=== PATIENT | male | born 1970 | race Hispanic/Latino ===

== ENCOUNTER 2021-02-21 15:00 | Inpatient (IN) | payer MEDICARE ==
[~2021-02-21] VITALS: Ht 167.6 cm; Wt 54.4 kg
[2021-02-21 14:08] LABS: BASOPHILS % (AUTO) 0.4 % (0.0-5.0); EOSINOPHILS % (AUTO) 3.3 % (0.0-8.0); HEMATOCRIT 39.5 % (42-54); LYMPHOCYTES % (AUTO) 18.6 % (21.0-51.0); MEAN CORPUSCULAR HGB CONC 31.4 g/dL (32.0-36.0); MEAN CORPUSCULAR VOLUME 92.5 fL (79-99); MONOCYTES % (AUTO) 8.6 % (3.0-13.0); NEUTROPHILS % (AUTO) 68.8 % (40.0-77.0); PLATELET COUNT (AUTO) 339 K/uL (130-400); RED BLOOD CELL COUNT(AUTO) 4.27 MIL/uL (4.50-6.20); RED CELL DISTRIBUTION WIDTH 13.5 % (11.0-15.5); WHITE BLOOD COUNT (AUTO) 9.8 K/uL (4.8-10.8)
[2021-02-21 14:16] LABS: CREATININE 0.6 mg/dL (0.5-1.5); POTASSIUM 3.9 mmol/L (3.5-5.1)
[2021-02-22 08:33] VITALS: BP 98/63
[2021-02-22] MEDS ORDERED: LACTATED RINGERS 1000ML 1,000 ML IV SCH (09:00)
[2021-02-22] MEDS ORDERED: ESLI600T PO (17:27)
[2021-02-22] MEDS ORDERED: LEVE10006 PO (17:27)
[2021-02-22] MEDS ORDERED: LACO200T2 PO (17:27)
[2021-02-22] MEDS ORDERED: [UNRECOGNIZED DRUG - OTHER] PO (17:27)
[2021-02-23] VITALS (19 sets, daily range): BP systolic 106–128; BP diastolic 62–81
[2021-02-23] MEDS: CEFAZOLIN SODIUM 1 GM VIAL IVP SCH ×2 (13:10→16:13)
[2021-02-23] MEDS ORDERED: LIDOCAINE PF 100MG/5ML (2%) SYRINGE 5ML ONE (15:52)
[2021-02-23] MEDS ORDERED: SUCCINYLCHOLINE CHLORIDE 20 MG/ML 10 ML VIAL ONE (15:52)
[2021-02-23] MEDS ORDERED: PROPOFOL 10 MG/ML 20ML VIAL IV ONE (15:52)
[2021-02-23] MEDS ORDERED: FENTANYL CITRATE PF 50 MCG/1 ML 2ML VIAL ONE (15:53)
[2021-02-23] MEDS ORDERED: MIDAZOLAM HCL 1 MG/ML 2ML VIAL ONE (16:00)
[2021-02-23] MEDS ORDERED: ONDANSETRON 4MG INJ ONE (16:56)
[2021-02-23] MEDS: LACTATED RINGERS 1000ML 1,000 ML IV SCH (20:00)
[2021-02-23] MEDS ORDERED: NITROGLYCERIN 0.4 MG SL TAB SL PRN (20:30)
[2021-02-23] MEDS ORDERED: ONDANSETRON 4MG INJ IV PRN (20:30)
[2021-02-23] MEDS ORDERED: ACETAMINOPHEN 325 MG SUPPOSITORY RC PRN (21:00)
[2021-02-23] MEDS ORDERED: ACETAMINOPHEN 650 MG SUPPOSITORY RC PRN ×2 (21:00)
[2021-02-23] MEDS ORDERED: COMPOUND NARC IV MISC 1 EACH IVSOLN MISC PRN (21:00)
[2021-02-23] MEDS ORDERED: DIAZEPAM 5 MG/ML 2 ML SYG IVP PRN ×2 (21:00)
[2021-02-23] MEDS ORDERED: [UNRECOGNIZED DRUG - OTHER] IV SCH (21:30)
[2021-02-23] MEDS ORDERED: LACOSAMIDE IV SCH (21:30)
[2021-02-23] MEDS: FAMOTIDINE 20MG VIAL IV SCH (22:18)
[2021-02-24] MEDS: [UNRECOGNIZED DRUG - OTHER] IV SCH ×2 (00:20→09:43)
[2021-02-24] MEDS: LEVETIRACETAM IV SCH ×2 (00:20→09:43)
[2021-02-24] MEDS ORDERED: MORPHINE 2 MG SYG ONE (00:26)
[2021-02-24 03:28] VITALS: BP 114/53
[2021-02-24 05:56] LABS: BASOPHILS % (AUTO) 0.3 % (0.0-5.0); EOSINOPHILS % (AUTO) 2.2 % (0.0-8.0); HEMATOCRIT 35.9 % (42-54); LYMPHOCYTES % (AUTO) 15.6 % (21.0-51.0); MEAN CORPUSCULAR HEMOGLOBIN 28.5 pg (27.0-33.0); MEAN CORPUSCULAR HGB CONC 31.5 g/dL (32.0-36.0); MEAN CORPUSCULAR VOLUME 90.4 fL (79-99); MONOCYTES % (AUTO) 9.6 % (3.0-13.0); PLATELET COUNT (AUTO) 328 K/uL (130-400); RED BLOOD CELL COUNT(AUTO) 3.97 MIL/uL (4.50-6.20); RED CELL DISTRIBUTION WIDTH 13.5 % (11.0-15.5); WHITE BLOOD COUNT (AUTO) 9.2 K/uL (4.8-10.8)
[2021-02-24 06:27] LABS: ALBUMIN 2.4 g/dL (3.5-5.0); BILIRUBIN,TOTAL 0.5 mg/dL (0.2-1.0); CREATININE 0.6 mg/dL (0.5-1.5); MAGNESIUM 1.9 mg/dL (1.80-2.40); POTASSIUM 3.8 mmol/L (3.5-5.1); TOTAL PROTEIN, SERUM 7.3 g/dL (6.0-8.3)
[2021-02-24 08:00] VITALS: BP 110/65
[2021-02-24] MEDS ORDERED: LACOSAMIDE 200 MG/20 ML VIAL IV SCH ×2 (09:46→10:03)
[2021-02-24] MEDS ORDERED: LACOSAMIDE IV SCH ×5 (10:00→21:00)
[2021-02-24] MEDS ORDERED: COMPOUND NARC IV MISC 1 EACH IVSOLN MISC PRN (10:00)
[2021-02-24] MEDS ORDERED: [UNRECOGNIZED DRUG - OTHER] IV SCH ×5 (10:00→21:00)
[2021-02-24] MEDS ORDERED: 0.9%NACL 50ML 50 ML IV SCH (10:30)
[2021-02-24] MEDS: FAMOTIDINE 20MG VIAL IV SCH ×2 (10:35→21:25)
[2021-02-24 11:51] VITALS: BP 107/68
[2021-02-24] MEDS ORDERED: COMPOUND IV MISC 1 EACH IVSOLN MISC PRN (13:00)
[2021-02-24 16:00] VITALS: BP 114/73
[2021-02-24 19:50] VITALS: BP 107/69
[2021-02-24] MEDS: LEVETIRACETAM 100 MG/ML 5 ML UDCUP PEG SCH (21:00)
[2021-02-24] MEDS: ESLICARBAZEPINE 600 MG PEG SCH (21:00)
[2021-02-24] MEDS: LACOSAMIDE 200 MG PEG SCH (21:01)
[2021-02-24] MEDS: LACTATED RINGERS 1000ML 1,000 ML IV SCH ×2 (21:25→22:43)
[2021-02-25] VITALS (7 sets, daily range): BP systolic 95–111; BP diastolic 60–71
[2021-02-25 05:49] LABS: BASOPHILS % (AUTO) 0.3 % (0.0-5.0); EOSINOPHILS % (AUTO) 2.4 % (0.0-8.0); HEMATOCRIT 34.6 % (42-54); LYMPHOCYTES % (AUTO) 12.1 % (21.0-51.0); MEAN CORPUSCULAR HEMOGLOBIN 28.7 pg (27.0-33.0); MEAN CORPUSCULAR HGB CONC 32.1 g/dL (32.0-36.0); MEAN CORPUSCULAR VOLUME 89.4 fL (79-99); MONOCYTES % (AUTO) 8.1 % (3.0-13.0); NEUTROPHILS % (AUTO) 76.7 % (40.0-77.0); PLATELET COUNT (AUTO) 368 K/uL (130-400); RED BLOOD CELL COUNT(AUTO) 3.87 MIL/uL (4.50-6.20); RED CELL DISTRIBUTION WIDTH 13.3 % (11.0-15.5); WHITE BLOOD COUNT (AUTO) 10.2 K/uL (4.8-10.8)
[2021-02-25 06:05] LABS: ALBUMIN 2.4 g/dL (3.5-5.0); BILIRUBIN,TOTAL 0.5 mg/dL (0.2-1.0); CREATININE 0.5 mg/dL (0.5-1.5); POTASSIUM 3.7 mmol/L (3.5-5.1); TOTAL PROTEIN, SERUM 7.4 g/dL (6.0-8.3)
[2021-02-25] MEDS: LACOSAMIDE 200 MG PEG SCH ×2 (09:00→20:07)
[2021-02-25] MEDS: FAMOTIDINE 20MG VIAL IV SCH ×2 (09:04→20:06)
[2021-02-25] MEDS: LEVETIRACETAM 100 MG/ML 5 ML UDCUP PEG SCH ×2 (09:05→20:06)
[2021-02-25] MEDS: LACTATED RINGERS 1000ML 1,000 ML IV SCH (13:10)
[2021-02-25] MEDS: ESLICARBAZEPINE 600 MG PEG SCH (20:06)
[2021-02-25] MEDS: MORPHINE 2 MG SYG IVP PRN (20:30)
[2021-02-26] MEDS: LACTATED RINGERS 1000ML 1,000 ML IV SCH (01:20)
[2021-02-26 04:17] VITALS: BP 110/66
[2021-02-26 05:19] LABS: BASOPHILS % (AUTO) 0.3 % (0.0-5.0); EOSINOPHILS % (AUTO) 2.4 % (0.0-8.0); HEMATOCRIT 35.1 % (42-54); LYMPHOCYTES % (AUTO) 15.3 % (21.0-51.0); MEAN CORPUSCULAR HEMOGLOBIN 29.1 pg (27.0-33.0); MEAN CORPUSCULAR HGB CONC 31.9 g/dL (32.0-36.0); MEAN CORPUSCULAR VOLUME 91.2 fL (79-99); NEUTROPHILS % (AUTO) 71.5 % (40.0-77.0); PLATELET COUNT (AUTO) 357 K/uL (130-400); RED BLOOD CELL COUNT(AUTO) 3.85 MIL/uL (4.50-6.20); RED CELL DISTRIBUTION WIDTH 13.4 % (11.0-15.5); WHITE BLOOD COUNT (AUTO) 11.1 K/uL (4.8-10.8)
[2021-02-26 05:41] LABS: ALBUMIN 2.5 g/dL (3.5-5.0); BILIRUBIN,TOTAL 0.3 mg/dL (0.2-1.0); CREATININE 0.5 mg/dL (0.5-1.5); POTASSIUM 3.7 mmol/L (3.5-5.1); TOTAL PROTEIN, SERUM 7.8 g/dL (6.0-8.3)
[2021-02-26 07:30] VITALS: BP 108/72
[2021-02-26] MEDS: LACOSAMIDE 200 MG PEG SCH (09:00)
[2021-02-26] MEDS: FAMOTIDINE 20MG VIAL IV SCH ×2 (09:21→21:15)
[2021-02-26] MEDS: LEVETIRACETAM 100 MG/ML 5 ML UDCUP PEG SCH ×2 (09:21→21:15)
[2021-02-26 11:00] VITALS: BP 102/63
[2021-02-26 16:00] VITALS: BP 112/69
[2021-02-26 20:12] VITALS: BP 115/71
[2021-02-26] MEDS: ESLICARBAZEPINE 600 MG PEG SCH (21:00)
[2021-02-26] MEDS: MORPHINE 2 MG SYG IVP PRN (21:15)
[2021-02-26 23:47] VITALS: BP 102/64
[2021-02-27 04:06] VITALS: BP 100/61
[2021-02-27 05:25] LABS: BASOPHILS % (AUTO) 0.3 % (0.0-5.0); EOSINOPHILS % (AUTO) 2.1 % (0.0-8.0); HEMATOCRIT 33.9 % (42-54); LYMPHOCYTES % (AUTO) 8.3 % (21.0-51.0); MEAN CORPUSCULAR HEMOGLOBIN 29.1 pg (27.0-33.0); MEAN CORPUSCULAR VOLUME 88.1 fL (79-99); NEUTROPHILS % (AUTO) 80.9 % (40.0-77.0); PLATELET COUNT (AUTO) 411 K/uL (130-400); RED BLOOD CELL COUNT(AUTO) 3.85 MIL/uL (4.50-6.20); RED CELL DISTRIBUTION WIDTH 13.2 % (11.0-15.5); WHITE BLOOD COUNT (AUTO) 11.2 K/uL (4.8-10.8)
[2021-02-27 05:55] LABS: ALBUMIN 2.5 g/dL (3.5-5.0); BILIRUBIN,TOTAL 0.3 mg/dL (0.2-1.0); CREATININE 0.6 mg/dL (0.5-1.5); MAGNESIUM 2.1 mg/dL (1.80-2.40); POTASSIUM 3.7 mmol/L (3.5-5.1); TOTAL PROTEIN, SERUM 7.9 g/dL (6.0-8.3)
[2021-02-27 07:30] VITALS: BP 102/62
[2021-02-27] MEDS ORDERED: ENOXAPARIN SODIUM 30 MG/0.3 ML SQ SCH (09:00)
[2021-02-27] MEDS ORDERED: LACOSAMIDE IV SCH (09:30)
[2021-02-27] MEDS ORDERED: [UNRECOGNIZED DRUG - OTHER] IV SCH (09:30)
[2021-02-27] MEDS ORDERED: PHARMACY COMMUNICATION MISC SCH ×4 (09:30→13:30)
[2021-02-27] MEDS: LEVETIRACETAM 100 MG/ML 5 ML UDCUP PEG SCH ×2 (09:36→21:43)
[2021-02-27] MEDS: FAMOTIDINE 20MG VIAL IV SCH ×2 (09:37→21:44)
[2021-02-27] MEDS ORDERED: LACTATED RINGERS 1000ML 1,000 ML IV ONE (09:46)
[2021-02-27] MEDS ORDERED: LORAZEPAM 2 MG/ML 1 ML VIAL ONE ×2 (10:13→20:18)
[2021-02-27 11:00] VITALS: BP 104/61
[2021-02-27] MEDS ORDERED: COMPOUND PO NARCOTIC 1 EACH PO SCH (11:00)
[2021-02-27] MEDS: LACTATED RINGERS 1000ML 1,000 ML IV SCH (11:00)
[2021-02-27] MEDS ORDERED: DIVALPROEX SODIUM 250 MG TABLET.DR PO ONE ×2 (12:44→14:30)
[2021-02-27] MEDS ORDERED: [UNRECOGNIZED DRUG - OTHER] IV SCH ×2 (13:30→21:00)
[2021-02-27] MEDS ORDERED: VALPROIC ACID IV SCH ×2 (13:30→21:00)
[2021-02-27] MEDS ORDERED: VALPROATE SOD 250 MG/5 ML (PO) PEG SCH (15:30)
[2021-02-27 16:00] VITALS: BP 98/61
[2021-02-27 20:12] VITALS: BP 106/65
[2021-02-27] MEDS ORDERED: DIVALPROEX SODIUM 250 MG TABLET.DR PO SCH (21:00)
[2021-02-27] MEDS ORDERED: LORAZEPAM 2 MG/ML 1 ML VIAL IVP ONE (21:00)
[2021-02-27] MEDS ORDERED: VALPROATE SOD 250 MG/5 ML (PO) PO SCH (21:00)
[2021-02-27] MEDS: ESLICARBAZEPINE 600 MG PEG SCH (21:00)
[2021-02-27] MEDS: [UNRECOGNIZED DRUG - OTHER] IV SCH (21:44)
[2021-02-27] MEDS: LACOSAMIDE IV SCH (21:44)
[2021-02-27 23:47] VITALS: BP 104/58
[2021-02-28] MEDS: LACTATED RINGERS 1000ML 1,000 ML IV SCH (00:20)
[2021-02-28] MEDS: VALPROATE SOD 250 MG/5 ML (PO) PO SCH ×2 (02:21→08:44)
[2021-02-28 04:09] VITALS: BP 103/52
[2021-02-28 06:24] LABS: BASOPHILS % (AUTO) 0.4 % (0.0-5.0); HEMATOCRIT 32.7 % (42-54); LYMPHOCYTES % (AUTO) 11.8 % (21.0-51.0); MEAN CORPUSCULAR HEMOGLOBIN 29.2 pg (27.0-33.0); MEAN CORPUSCULAR HGB CONC 32.4 g/dL (32.0-36.0); MEAN CORPUSCULAR VOLUME 90.1 fL (79-99); MONOCYTES % (AUTO) 8.8 % (3.0-13.0); NEUTROPHILS % (AUTO) 76.7 % (40.0-77.0); PLATELET COUNT (AUTO) 322 K/uL (130-400); RED BLOOD CELL COUNT(AUTO) 3.63 MIL/uL (4.50-6.20); RED CELL DISTRIBUTION WIDTH 13.2 % (11.0-15.5); WHITE BLOOD COUNT (AUTO) 9.5 K/uL (4.8-10.8)
[2021-02-28 06:55] LABS: ALBUMIN 2.4 g/dL (3.5-5.0); BILIRUBIN,TOTAL 0.3 mg/dL (0.2-1.0); CREATININE 0.5 mg/dL (0.5-1.5); POTASSIUM 3.7 mmol/L (3.5-5.1); TOTAL PROTEIN, SERUM 7.4 g/dL (6.0-8.3)
[2021-02-28 07:30] VITALS: BP 113/68
[2021-02-28] MEDS: FAMOTIDINE 20MG VIAL IV SCH ×2 (08:35→20:46)
[2021-02-28] MEDS: LEVETIRACETAM 100 MG/ML 5 ML UDCUP PEG SCH (08:35)
[2021-02-28] MEDS: LACOSAMIDE IV SCH ×2 (08:46→21:56)
[2021-02-28] MEDS: [UNRECOGNIZED DRUG - OTHER] IV SCH ×2 (08:46→21:56)
[2021-02-28] MEDS ORDERED: PHARMACY COMMUNICATION MISC SCH ×2 (10:30→11:30)
[2021-02-28 11:00] VITALS: BP 93/53
[2021-02-28] MEDS: ESLICARBAZEPINE 600 MG PEG SCH (11:57)
[2021-02-28] MEDS ORDERED: ZOSYN 3.375GM+NS 50ML 3.38 GM in 0.9%NACL 50ML 50 ML IV SCH (15:00)
[2021-02-28] MEDS: ZOSYN 3.375GM +NS 50ML IV SCH ×2 (15:33→23:02)
[2021-02-28 16:00] VITALS: BP 108/55
[2021-02-28 20:26] VITALS: BP 99/61
[2021-02-28] MEDS: VALPROIC ACID (AS SODIUM SALT) 500 MG in 0.9%NACL 100ML 100 ML IV SCH (20:47)
[2021-02-28] MEDS: LEVETIRACETAM IV SCH (22:00)
[2021-02-28] MEDS: [UNRECOGNIZED DRUG - OTHER] IV SCH (22:00)
[2021-02-28] MEDS ORDERED: 0.9% NACL 250ML 250 ML ONE (22:11)
[2021-03-01] VITALS (7 sets, daily range): BP systolic 88–99; BP diastolic 37–64
[2021-03-01 06:26] LABS: BASOPHILS % (AUTO) 0.4 % (0.0-5.0); HEMATOCRIT 33.1 % (42-54); LYMPHOCYTES % (AUTO) 9.6 % (21.0-51.0); MEAN CORPUSCULAR HEMOGLOBIN 28.8 pg (27.0-33.0); MEAN CORPUSCULAR HGB CONC 32.3 g/dL (32.0-36.0); MEAN CORPUSCULAR VOLUME 89.2 fL (79-99); MONOCYTES % (AUTO) 8.7 % (3.0-13.0); NEUTROPHILS % (AUTO) 79.7 % (40.0-77.0); PLATELET COUNT (AUTO) 328 K/uL (130-400); RED BLOOD CELL COUNT(AUTO) 3.71 MIL/uL (4.50-6.20); RED CELL DISTRIBUTION WIDTH 13.7 % (11.0-15.5); WHITE BLOOD COUNT (AUTO) 7.9 K/uL (4.8-10.8)
[2021-03-01 06:35] LABS: MAGNESIUM 2.2 mg/dL (1.80-2.40); POTASSIUM 3.3 mmol/L (3.5-5.1)
[2021-03-01] MEDS: ZOSYN 3.375GM +NS 50ML IV SCH ×3 (06:59→23:11)
[2021-03-01 07:22] LABS: CREATININE 0.5 mg/dL (0.5-1.5)
[2021-03-01] MEDS ORDERED: POTASSIUM CHLORIDE 10% ELIXIR 20 MEQ/15 ML UDCUP PEG SCH (08:30)
[2021-03-01] MEDS: HEPARIN 5,000 UNIT VIAL SQ SCH ×2 (10:08→20:31)
[2021-03-01] MEDS: LEVETIRACETAM IV SCH ×2 (10:10→22:32)
[2021-03-01] MEDS: [UNRECOGNIZED DRUG - OTHER] IV SCH ×2 (10:10→20:40)
[2021-03-01] MEDS: FAMOTIDINE 20MG VIAL IV SCH ×2 (10:10→20:29)
[2021-03-01] MEDS: LACOSAMIDE IV SCH ×2 (10:10→20:40)
[2021-03-01] MEDS: [UNRECOGNIZED DRUG - OTHER] IV SCH ×2 (10:10→22:32)
[2021-03-01] MEDS: VALPROIC ACID (AS SODIUM SALT) 500 MG in 0.9%NACL 100ML 100 ML IV SCH ×2 (10:11→20:41)
[2021-03-01] MEDS: ESLICARBAZEPINE 600 MG PEG SCH (12:08)
[2021-03-02 04:05] VITALS: BP 91/55
[2021-03-02] MEDS: ZOSYN 3.375GM +NS 50ML IV SCH ×3 (06:51→23:10)
[2021-03-02 06:54] LABS: BASOPHILS % (AUTO) 0.5 % (0.0-5.0); EOSINOPHILS % (AUTO) 3.4 % (0.0-8.0); HEMATOCRIT 36.5 % (42-54); LYMPHOCYTES % (AUTO) 23.3 % (21.0-51.0); MEAN CORPUSCULAR HEMOGLOBIN 28.3 pg (27.0-33.0); MEAN CORPUSCULAR HGB CONC 30.7 g/dL (32.0-36.0); MEAN CORPUSCULAR VOLUME 92.2 fL (79-99); MONOCYTES % (AUTO) 16.5 % (3.0-13.0); NEUTROPHILS % (AUTO) 55.8 % (40.0-77.0); PLATELET COUNT (AUTO) 326 K/uL (130-400); RED BLOOD CELL COUNT(AUTO) 3.96 MIL/uL (4.50-6.20); RED CELL DISTRIBUTION WIDTH 14.1 % (11.0-15.5); WHITE BLOOD COUNT (AUTO) 6.5 K/uL (4.8-10.8)
[2021-03-02 07:07] LABS: CREATININE 0.5 mg/dL (0.5-1.5); MAGNESIUM 2.4 mg/dL (1.80-2.40); POTASSIUM 3.7 mmol/L (3.5-5.1)
[2021-03-02 08:13] VITALS: BP 94/58
[2021-03-02] MEDS ORDERED: PHARMACY COMMUNICATION MISC SCH (08:30)
[2021-03-02] MEDS: VALPROATE SOD 250 MG/5 ML (PO) PEG SCH ×2 (08:46→21:35)
[2021-03-02] MEDS: FAMOTIDINE 20MG VIAL IV SCH ×2 (08:46→21:35)
[2021-03-02] MEDS: LEVETIRACETAM 100 MG/ML 5 ML UDCUP PEG SCH ×2 (08:47→21:35)
[2021-03-02] MEDS: HEPARIN 5,000 UNIT VIAL SQ SCH ×2 (08:51→22:10)
[2021-03-02] MEDS ORDERED: VALPROATE SOD 250 MG/5 ML (PO) PO SCH (09:00)
[2021-03-02] MEDS: LACOSAMIDE IV SCH ×2 (10:21→21:36)
[2021-03-02] MEDS: [UNRECOGNIZED DRUG - OTHER] IV SCH ×2 (10:21→21:36)
[2021-03-02 11:23] VITALS: BP 100/64
[2021-03-02] MEDS: ESLICARBAZEPINE 600 MG PEG SCH (12:00)
[2021-03-02 16:56] VITALS: BP 101/54
[2021-03-02 19:43] VITALS: BP 95/58
[2021-03-02 23:36] VITALS: BP 94/54
[2021-03-03 04:13] VITALS: BP 100/60
[2021-03-03 06:06] LABS: BASOPHILS % (AUTO) 0.2 % (0.0-5.0); EOSINOPHILS % (AUTO) 2.2 % (0.0-8.0); HEMATOCRIT 32.8 % (42-54); MEAN CORPUSCULAR HEMOGLOBIN 28.5 pg (27.0-33.0); MEAN CORPUSCULAR VOLUME 89.1 fL (79-99); MONOCYTES % (AUTO) 11.3 % (3.0-13.0); NEUTROPHILS % (AUTO) 67.9 % (40.0-77.0); PLATELET COUNT (AUTO) 347 K/uL (130-400); RED BLOOD CELL COUNT(AUTO) 3.68 MIL/uL (4.50-6.20); WHITE BLOOD COUNT (AUTO) 8.2 K/uL (4.8-10.8)
[2021-03-03 06:18] LABS: CREATININE 0.6 mg/dL (0.5-1.5); MAGNESIUM 2.2 mg/dL (1.80-2.40); POTASSIUM 3.8 mmol/L (3.5-5.1)
[2021-03-03] MEDS: ZOSYN 3.375GM +NS 50ML IV SCH (06:22)
[2021-03-03 06:56] VITALS: BP 101/66
[2021-03-03 07:57] VITALS: BP 101/66
[2021-03-03] MEDS: LACOSAMIDE IV SCH (08:21)
[2021-03-03] MEDS: [UNRECOGNIZED DRUG - OTHER] IV SCH (08:21)
[2021-03-03] MEDS: FAMOTIDINE 20MG VIAL IV SCH (08:21)
[2021-03-03] MEDS: VALPROATE SOD 250 MG/5 ML (PO) PEG SCH (08:22)
[2021-03-03] MEDS: LEVETIRACETAM 100 MG/ML 5 ML UDCUP PEG SCH (08:22)
[2021-03-03] MEDS: HEPARIN 5,000 UNIT VIAL SQ SCH (08:54)
[2021-03-03 11:44] VITALS: BP 96/56
[2021-03-03] MEDS: ESLICARBAZEPINE 600 MG PEG SCH (11:58)
[2021-03-03] MEDS ORDERED: AMOX-429 PEG (13:36)
[2021-03-03] MEDS ORDERED: VALP250S23 PEG (13:36)
[2021-03-03] MEDS ORDERED: LEVE500S7 PEG (13:36)
[2021-03-03 15:53] VITALS: BP 96/59
== END 2021-03-03 15:55 | disposition home or self-care (01) | DRG 137 ==
LOC: EDSTATUS 15:00 → OBSVTOIN 02-23 11:08 → DAHIP 02-23 11:08 → 3BH 02-23 18:41 → INTOOBSV 02-23 20:25 → OBSVTOIN 02-23 20:25
PROVIDERS: ADMIT Internal Medicine; ATTEND Otolaryngology
PROC: 0WB Anatomical Regions, General, Excision (ICD-10-PCS; principal; 2021-02-23 16:16)
PROC: 0DH63UZ Insertion of Feeding Device into Stomach, Percutaneous Approach (ICD-10-PCS; 2021-02-23 16:16)
DX: C06.9 Malignant neoplasm of mouth, unspecified (principal); E43 Unspecified severe protein-calorie malnutrition; Z68.1 Body mass index [BMI] 19.9 or less, adult; G40.911 Epilepsy, unspecified, intractable, with status epilepticus; G81.94 Hemiplegia, unspecified affecting left nondominant side; R13.12 Dysphagia, oropharyngeal phase; J32.0 Chronic maxillary sinusitis; D64.9 Anemia, unspecified; R53.81 Other malaise; I10 Essential (primary) hypertension; K12.1 Other forms of stomatitis; Z99.3 Dependence on wheelchair; Z74.01 Bed confinement status; Z85.819 Personal history of malignant neoplasm of unspecified site of lip, oral cavity, and pharynx; Z85.89 Personal history of malignant neoplasm of other organs and systems; Z83.3 Family history of diabetes mellitus; Z82.49 Family history of ischemic heart disease and other diseases of the circulatory system; Z80.49 Family history of malignant neoplasm of other genital organs; Z20.822 Contact with and (suspected) exposure to COVID-19
CPT/HCPCS: 36415; 43246; 70450; 71045; 80048; 80053; 80164; 80177; 82550; 82948; 83735; 84145; 85025; 87635; 88305; 88311; 88312; 88331; 92610; 93005; 97039; A4354; A4606; G0378; J0330; J0690; J1644; J1650; J1953; J2001; J2060; J2250; J2405; J2543; J2704; J3010; J3490; J7050; J7120